=== PATIENT | male | born 1930 | race Caucasian/White ===

== ENCOUNTER 2016-07-09 10:28 | Inpatient (IN) | payer MEDICARE, OTHER ==
[2016-07-09] MEDS ORDERED: SODIUM CHLORIDE 0.9% 1,000 ML IV STA (10:42)
[2016-07-09] MEDS ORDERED: IPRATROPIUM-ALBUTEROL 3 ML NEB INHALATION STA (10:42)
--- NOTE | 2016-07-09 10:52 | ED ---
General Adult HPI - General Chief complaint: Shortness of Breath Stated complaint: GEN Time Seen by Provider: 07/09/16 10:30 Source: patient, EMS, RN notes reviewed, old records reviewed Mode of arrival: EMS - History of Present Illness Initial comments: This is an 85-year-old male ER for evaluation. Patient coming upper extremity carefully for evaluation of cough and shortness of breath, decreased activity level. Patient self really has no complaints, he was hypoxic on room air when he came to the emergency room today. Patient did deny any chest pain, no recent fevers, he does have a cough denies any significant sick contacts. Patient denies abdominal pain or chest pain. No nausea vomiting or diarrhea - Related Data Home Medications Medication Instructions Recorded Confirmed Digoxin [Lanoxin] 125 mcg PO QAM 06/11/15 07/09/16 Isosorbide Mononitrate [Isosorbide 30 mg PO DAILY 06/11/15 07/09/16 Mononitrate ER] Levothyroxine Sodium [Synthroid] 100 mcg PO DAILY 06/11/15 07/09/16 Sotalol [Betapace] 40 mg PO BID 06/11/15 07/09/16 metFORMIN HCL [Glucophage] 500 mg PO BID 06/11/15 07/09/16 Aspirin 325 mg PO HS 07/23/15 07/09/16 Cholecalciferol [Vitamin D3] 1,000 unit PO HS 07/23/15 07/09/16 Simvastatin [Zocor] 20 mg PO HS 07/23/15 07/09/16 Furosemide [Lasix] 20 mg PO DAILY 07/09/16 07/09/16 Warfarin Sodium [Coumadin] 3 mg PO THSA 07/09/16 07/09/16 Warfarin Sodium [Coumadin] 4 mg PO SUMOTUWEFR 07/09/16 07/09/16 Allergies Allergy/AdvReac Type Severity Reaction Status Date / Time Penicillins Allergy Rash/Hives Verified 07/09/16 11:30 clindamycin AdvReac Nausea & Verified 07/09/16 11:30 Vomiting Sulfa (Sulfonamide AdvReac Nausea & Verified 07/09/16 11:30 Antibiotics) Vomiting Review of Systems ROS Statement: Those systems with pertinent positive or pertinent negative responses have been documented in the HPI. ROS Other: All systems not noted in ROS Statement are negative. 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 cerebral palsy. AUGUSTINE,anemia, mild short term memory problems, past arrythmia, lt hand ( dominate hand) shakes, dizzy spells orthostatic hypotension(was here 06-11-15 for this problem(lasix was decreased from 40mg to 20mg at that time. History of Any Multi-Drug Resistant Organisms: None Reported Past Surgical History: Cholecystectomy, Coronary Bypass/CABG, Heart Catheterization, Pacemaker Additional Past Surgical History / Comment(s): lt side facial sx to relive tension by eye Past Anesthesia/Blood Transfusion Reactions: No Reported Reaction Type of Cardiac Device: Permanent Pacemaker Device Placement Date:: unk Past Psychological History: No Psychological Hx Reported Additional Psychological History / Comment(s): pt currently living with his niece,no outside services, uses a cane when up-has orhtostatic hypotension-fell 06-11-15 no injury). Smoking Status: Former smoker Past Alcohol Use History: None Reported Additional Past Alcohol Use History / Comment(s): quit 1996 Past Drug Use History: None Reported - Past Family History Father Family Medical History: Myocardial Infarction ([place]) Mother Family Medical History: Myocardial Infarction ([place]) General Exam General appearance: alert, in no apparent distress Head exam: Present: atraumatic, normocephalic, normal inspection Eye exam: Present: normal appearance, PERRL, EOMI. Absent: scleral icterus, conjunctival injection, periorbital swelling ENT exam: Present: mucous membranes dry Neck exam: Present: normal inspection. Absent: tenderness, meningismus, lymphadenopathy Respiratory exam: Present: normal lung sounds bilaterally, wheezes. Absent: respiratory distress, rales, rhonchi, stridor Cardiovascular Exam: Present: regular rate, normal rhythm, normal heart sounds. Absent: systolic murmur, diastolic murmur, rubs, gallop, clicks GI/Abdominal exam: Present: soft, normal bowel sounds. Absent: distended, tenderness, guarding, rebound, rigid Extremities exam: Present: normal inspection, full ROM, normal capillary refill. Absent: tenderness, pedal edema, joint swelling, calf tenderness Back exam: Present: normal inspection Neurological exam: Present: alert, oriented X3, CN II-XII intact Psychiatric exam: Present: normal affect, normal mood Skin exam: Present: warm, dry, intact, normal color. Absent: rash Course Vital Signs 07/09/16 07/09/16 07/09/16 10:29 11:05 11:20 Temperature 96.8 F L Pulse Rate 76 66 62 Respiratory 20 Rate Blood Pressure 111/58 O2 Sat by Pulse 93 L Oximetry - Reevaluation(s) Reevaluation #1: 07/09/16 12:57 Patient does have improvement patient with IV hydration and breathing treatment EKG Findings - EKG Comments: EKG Findings:: EKG shows paced rhythm rate of 63, QRS 176, QTC 495 Medical Decision Making - Medical Decision Making A female year for evaluation of the altered mental status cough and congestion, patient does of COPD exacerbation no pneumonia seen, patient is of elevated troponin which was trended out, denied chest pain and no EKG changes at this time. Patient given a breathing treatment and IV resuscitation and feeling better - Lab Data Result diagrams: 07/09/16 10:40 07/09/16 10:40 Lab Results 07/09/16 07/09/16 07/09/16 Range/Units 10:40 10:40 10:40 WBC 7.3 (3.8-10.6) k/uL RBC 2.91 L (4.30-5.90) m/uL Hgb 11.2 L (13.0-17.5) gm/dL Hct 35.0 L (39.0-53.0) % MCV 120.0 H (80.0-100.0) fL MCH 38.3 H (25.0-35.0) pg MCHC 31.9 (31.0-37.0) g/dL RDW 15.6 H (11.5-15.5) % Plt Count 155 (150-450) k/uL Neutrophils % 67 % Lymphocytes % 20 % Monocytes % 6 % Eosinophils % 3 % Basophils % 1 % Neutrophils # 4.9 (1.3-7.7) k/uL Lymphocytes # 1.4 (1.0-4.8) k/uL Monocytes # 0.4 (0-1.0) k/uL Eosinophils # 0.2 (0-0.7) k/uL Basophils # 0.1 (0-0.2) k/uL Manual Slide Review Performed Poikilocytosis (manual Present Macrocytosis Marked PT (9.0-12.0) sec INR (<1.1) APTT (22.0-30.0) sec Sodium 140 (137-145) mmol/L Potassium 4.8 (3.5-5.1) mmol/L Chloride 104 (98-107) mmol/L Carbon Dioxide 22 (22-30) mmol/L Anion Gap 14 mmol/L BUN 24 H (9-20) mg/dL Creatinine 1.15 (0.66-1.25) mg/dL Est GFR (MDRD) Af Amer >60 (>60 ml/min/1.73 sqM) Est GFR (MDRD) Non-Af >60 (>60 ml/min/1.73 sqM) Glucose 183 H (74-99) mg/dL Plasma Lactic Acid Bandar (0.7-2.0) mmol/L Calcium 8.5 (8.4-10.2) mg/dL Phosphorus 4.2 (2.5-4.5) mg/dL Magnesium 1.7 (1.6-2.3) mg/dL Total Bilirubin 2.2 H (0.2-1.3) mg/dL AST 51 (17-59) U/L ALT 41 (21-72) U/L Alkaline Phosphatase 102 (38-126) U/L Total Creatine Kinase 40 L (55-170) U/L CK-MB (CK-2) 1.7 (0.0-2.4) ng/mL CK-MB (CK-2) Rel Index 4.3 Troponin I 0.095 H* (0.000-0.034) ng/mL Total Protein 8.0 (6.3-8.2) g/dL Albumin 3.1 L (3.5-5.0) g/dL Digoxin 1.7 ng/mL Influenza Type A RNA (Not Detectd) Influenza Type B (PCR) (Not Detectd) 07/09/16 07/09/16 07/09/16 Range/Units 10:40 10:40 10:40 WBC (3.8-10.6) k/uL RBC (4.30-5.90) m/uL Hgb (13.0-17.5) gm/dL Hct (39.0-53.0) % MCV (80.0-100.0) fL MCH (25.0-35.0) pg MCHC (31.0-37.0) g/dL RDW (11.5-15.5) % Plt Count (150-450) k/uL Neutrophils % % Lymphocytes % % Monocytes % % Eosinophils % % Basophils % % Neutrophils # (1.3-7.7) k/uL Lymphocytes # (1.0-4.8) k/uL Monocytes # (0-1.0) k/uL Eosinophils # (0-0.7) k/uL Basophils # (0-0.2) k/uL Manual Slide Review Poikilocytosis (manual Macrocytosis PT 28.7 H (9.0-12.0) sec INR 3.0 (<1.1) APTT 35.1 H (22.0-30.0) sec Sodium (137-145) mmol/L Potassium (3.5-5.1) mmol/L Chloride (98-107) mmol/L Carbon Dioxide (22-30) mmol/L Anion Gap mmol/L BUN (9-20) mg/dL Creatinine (0.66-1.25) mg/dL Est GFR (MDRD) Af Amer (>60 ml/min/1.73 sqM) Est GFR (MDRD) Non-Af (>60 ml/min/1.73 sqM) Glucose (74-99) mg/dL Plasma Lactic Acid Bandar 5.3 H* (0.7-2.0) mmol/L Calcium (8.4-10.2) mg/dL Phosphorus (2.5-4.5) mg/dL Magnesium (1.6-2.3) mg/dL Total Bilirubin (0.2-1.3) mg/dL AST (17-59) U/L ALT (21-72) U/L Alkaline Phosphatase (38-126) U/L Total Creatine Kinase (55-170) U/L CK-MB (CK-2) (0.0-2.4) ng/mL CK-MB (CK-2) Rel Index Troponin I (0.000-0.034) ng/mL Total Protein (6.3-8.2) g/dL Albumin (3.5-5.0) g/dL Digoxin ng/mL Influenza Type A RNA Not Detected (Not Detectd) Influenza Type B (PCR) Not Detected (Not Detectd) - Radiology Data Radiology results: report reviewed (Chest x-ray has chronic changes), image reviewed Disposition Clinical Impression: Elevated troponin I level, Acute kidney failure, unspecified, Congestive heart failure, Acute exacerbation of chronic obstructive airways disease Disposition: ADMITTED IP TO THIS HOSP Condition: Fair Referrals: Christiano Warren DO [Primary Care Provider] - 1-2 days
[2016-07-09 11:09] LABS: Basophils # (A) 0.1 k/uL (0-0.2); Basophils % (A) 1 %; Eosinophils # (A) 0.2 k/uL (0-0.7); Eosinophils % (A) 3 %; HDW 2.85; HGB 11.2 gm/dL (13.0-17.5); Luc # (Auto) 0.26; Luc % (Auto) 4; Lymphocytes # (A) 1.4 k/uL (1.0-4.8); Lymphocytes % (A) 20 %; MCH 38.3 pg (25.0-35.0); MCHC 31.9 g/dL (31.0-37.0); Macrocytosis Marked; Monocytes # (A) 0.4 k/uL (0-1.0); Monocytes % (A) 6 %; Neutrophils # (A) 4.9 k/uL (1.3-7.7); Neutrophils % (A) 67 %; RBC 2.91 m/uL (4.30-5.90); RDW 15.6 % (11.5-15.5); WBC 7.3 k/uL (3.8-10.6)
[2016-07-09 11:15] LABS: ALT 41 U/L (21-72); AST 51 U/L (17-59); Alkaline Phosphatase 102 U/L (38-126); Anion Gap 14 mmol/L; Blood Urea Nitrogen 24 mg/dL (9-20); Calcium 8.5 mg/dL (8.4-10.2); Carbon Dioxide 22 mmol/L (22-30); Chloride 104 mmol/L (98-107); Digoxin 1.7 ng/mL; Glucose 183 mg/dL (74-99); Magnesium 1.7 mg/dL (1.6-2.3); Non-African American GFR(MDRD) >60 (>60 ml/min/1.73 sqM); Phosphorous 4.2 mg/dL (2.5-4.5); Potassium 4.8 mmol/L (3.5-5.1); Sodium 140 mmol/L (137-145); Total Bilirubin 2.2 mg/dL (0.2-1.3)
--- NOTE | 2016-07-09 11:19 | XR ---
EXAMINATION TYPE: XR chest 2V DATE OF EXAM: 07/09/2016 10:56 AM COMPARISON: 10/16/2015 HISTORY: Weakness FINDINGS: The lungs are clear and there is no pneumothorax, pleural effusion, or focal pneumonia. Postsurgical change and cardiac device noted. Diffuse interstitial pattern seen with bilateral lateral pleural th ickening and small right effusion. Hypertrophic and degenerative change of the spine. Surgical clips in the abdomen. IMPRESSION: 1. Right-sided chronic pleural thickening or tiny effusion with evidence suggestive of COPD and chron ic interstitial lung disease such as fibrosis. Findings appear slightly progressed with regard to the right lower lobe relative to the previous x-ray. Small effusion also is increased.
[2016-07-09 11:20] LABS: Partial Thromboplastin Time 35.1 sec (22.0-30.0); Prothrombin Time 28.7 sec (9.0-12.0)
[2016-07-09 11:34] LABS: Manual Review Performed
[2016-07-09 11:45] LABS: Creatine Kinase MB 1.7 ng/mL (0.0-2.4)
[2016-07-09 11:48] LABS: Troponin I 0.095 ng/mL (0.000-0.034)
[2016-07-09] MEDS ORDERED: SODIUM CHLORIDE 0.9% 500 ML IV STA (12:04)
[2016-07-09] MEDS ORDERED: SODIUM CHLORIDE 0.9% 2,000 ML IV STA (12:04)
[2016-07-09] MEDS ORDERED: ASPIRIN 81 MG CHEW PO STA (12:53)
[2016-07-09] MEDS ORDERED: NITROGLYCERIN SL TABS 0.4 MG TAB SUBLINGUAL PRN (12:53)
[2016-07-09] MEDS ORDERED: MORPHINE SULFATE 4 MG/ML SYRINGE IV PRN (12:53)
[2016-07-09] MEDS ORDERED: SODIUM CHLORIDE 0.9% 1,000 ML IV SCH (13:00)
[2016-07-09 14:05] VITALS: BMI 27.3
[2016-07-09 15:11] LABS: Appearance,Urine Cloudy (Clear); Bilirubin,Urine Negative (Negative); Glucose,Urine (UA) Negative (Negative); Ketones,Urine Negative (Negative); Leukocyte Esterase,Urine Large (Negative); Mucus,Urine Rare /hpf; Nitrite,Urine Negative (Negative); Particle Count 3067; Protein,Urine Trace (Negative); RBC,Urine 8 /hpf (0-5); Squamous Epithelial Cell,Urine <1 /hpf (0-4); UA Billing (MACRO vs. MICRO) MICRO; Urobilinogen,Urine <2.0 mg/dL (<2.0); WBC,Urine 81 /hpf (0-5)
[2016-07-09] MEDS: IPRATROPIUM-ALBUTEROL 3 ML NEB INHALATION SCH ×2 (15:52→20:43)
[2016-07-09 17:17] LABS: Glucose,Whole Blood 111 mg/dL (75-99)
[2016-07-09 17:41] LABS: Troponin I 0.193 ng/mL (0.000-0.034)
--- NOTE | 2016-07-09 20:35 | HP ---
DATE OF ADMISSION: 07/09/2016 The patient is an 85-year-old who came into the ER with complaints of shortness of breath, cough, with yellowish sputum production, the patient is on about ( ) at this point in time. The patient on clinical exam does have JVD as well as wheezing on exam. I do not appreciate any crackles. The patient does have ejection fraction of 30%. The patient does not give me a clear history of orthopnea, PND, the patient denied any fevers. The patient does not have any leukocytosis. The patient did not have any BNP available. The patient ( ) digoxin ( ) The patient is on 125 mcg of Digoxin for atrial fibrillation. The patient dig level are ( ) is being held. The patient is a poor historian. The patient is basically admitted to the hospital with acute hypoxic respiratory failure. Patient denied any chest pain, mildly elevated troponin and EKG ( ), no ST-T wave changes but the patient repeat troponins will be obtained. The patient is on Coumadin for atrial fibrillation with supratherapeutic INR with therapeutic INR of around 3. The patient does have ( ) probably related to Metformin rather than pneumonic process. ROS: All other systems were reviewed and were negative. Home medications include: 1. Digoxin. 2. Isosorbide mononitrate. 3. Levothyroxine. 4. ( ). 5. Metformin. 6. Cholecalciferol. 7. ( ). 8. Lasix 20 mg oral daily. 9. Coumadin 3 mg and Friday, 4 mg the rest of the days. ALLERGIES: ( ) CLINDAMYCIN, SULFA DRUGS. PAST MEDICAL HISTORY: Significant for coronary artery disease, congestive heart failure, chronic systolic dysfunction, ejection fraction of around 30%, diabetes mellitus, hyperlipidemia, hypertension, cholecystectomy, coronary artery bypass grafting and ( ), cardiac catheterization and pacemaker placement in the past. The patient had a permanent pacemaker. SOCIAL HISTORY: Former smoker. Denied any alcohol abuse or any drug abuse. FAMILY HISTORY: Father had myocardial infarction. Mother had myocardial infarction. PHYSICAL EXAMINATION: VITAL SIGNS: Temperature 97.6, pulse of 76, respiratory rate of 20, blood pressure is 111/58, saturating at 93% on Venti mask, both ( ), oxygen. GENERAL: The patient is alert and oriented x3, not in any acute distress. Well developed, well nourished. HEENT: Pupils are round and equally reacting to light. EOMI. No scleral icterus. No conjunctival pallor. Normocephalic, atraumatic. No pharyngeal erythema. No thyromegaly. CARDIOVASCULAR: S1 and S2 present. Patient does have S3 and ( ) l believe the patient does have S3 as well. The patient does have elevated JVD. LUNGS: ( ) bilateral. No crackles were heard. Mildly decreased air entry into bilateral legs. PULMONARY: Chest is clear to auscultation, no wheezing or crackles. ABDOMEN: Soft, nontender, nondistended, normoactive bowel sounds. No palpable organomegaly. MUSCULOSKELETAL: No joint swelling or deformity. EXTREMITIES: No cyanosis, clubbing, or pedal edema. NEUROLOGICAL: Gross neurological examination did not reveal any focal deficits. SKIN: No rashes. SOCIAL HISTORY: Former smoker, denied any alcohol abuse or any drug abuse. LABORATORY DATA: CBC and BMP are abnormal and significant for mildly elevated creatinine of 1.15, BUN of 14, lactic acid of around ( ), mildly elevated troponin of 0.15, dig level is 1.7 lactic acid elevated at 5.3. Patient received IV fluids with lactic acid coming down to around 3.5. ASSESSMENT: 1. Acute hypoxic respiratory failure. I believe patient mostly has congestive heart failure exacerbation. Patient has chronic systolic dysfunction with acute exacerbation. The patient will be started on ( ) lactic acidosis. Lactic acid will be obtained again. I believe lactic acidosis mostly related to Metformin rather than ( ) itself. My suspicion is low for sepsis at this point of time and patient's wheezing is probably related to ( ). I will obtain a BNP level, probably repeat chest x-ray tomorrow. Chest x-ray was reviewed and it has chronic interstitial changes. I did not see any significant pneumonic process but I believe from the chest x-ray patient may have congestive heart failure. 2. Lactic acidosis probably related to metformin. In spite of lactic acidosis, because of my concern of severe respiratory failure, I will go ahead and give him Lasix. Repeat lactic acid and if it continues to go up then I have to get their advice from pulmonology or cardiology. Cardiology was consulted ( ). 3. Atrial fibrillation, ( ). The patient dig levels are elevated because of which his digoxin will be held. Will continue with sotalol. Patient is therapeutic on anticoagulation. Repeat INR tomorrow. Coumadin probably can be continued. 4. Diabetes mellitus, hold Metformin. The patient will be continued on sliding scale insulin. 5. Hyperlipidemia. 6. Coronary artery disease. 7. Hypertension. For above-mentioned chronic medical problems, I will go ahead and continue his home medications. 8. Hypothyroidism. Continue with levothyroxine. MTDD
[2016-07-09 20:52] LABS: Glucose,Whole Blood 120 mg/dL (75-99)
[2016-07-09] MEDS ORDERED: ASPIRIN 325 MG TAB PO SCH (21:00)
[2016-07-09] MEDS: SOTALOL 80 MG TAB PO SCH (22:01)
[2016-07-09] MEDS: ATORVASTATIN 10 MG TAB PO SCH (22:02)
[2016-07-09] MEDS: FUROSEMIDE 10 MG/ML 4 ML VIAL IV SCH (22:02)
[2016-07-09 23:17] LABS: Creatine Kinase MB 2.5 ng/mL (0.0-2.4); Troponin I 0.214 ng/mL (0.000-0.034)
[2016-07-10] MEDS: IPRATROPIUM-ALBUTEROL 3 ML NEB INHALATION SCH ×6 (00:47→20:28)
[2016-07-10 06:28] LABS: CH 37.8; CHCM 31.3; HGB 11.7 gm/dL (13.0-17.5); Hypochromasia Slight; MCH 39.6 pg (25.0-35.0); MCHC 32.5 g/dL (31.0-37.0); MCV 121.7 fL (80.0-100.0); Macrocytosis Marked; Mean Platelet Volume 8.1; RBC 2.96 m/uL (4.30-5.90); RDW 15.4 % (11.5-15.5); WBC 8.3 k/uL (3.8-10.6)
[2016-07-10 06:35] LABS: Glucose,Whole Blood 112 mg/dL (75-99)
[2016-07-10] MEDS: LEVOTHYROXINE 100 MCG TAB PO SCH (06:54)
[2016-07-10 07:04] LABS: Anion Gap 11 mmol/L; Blood Urea Nitrogen 23 mg/dL (9-20); Calcium 8.2 mg/dL (8.4-10.2); Carbon Dioxide 24 mmol/L (22-30); Chloride 106 mmol/L (98-107); Cholesterol 118 mg/dL (<200); Glucose 97 mg/dL (74-99); HDL Cholesterol 42 mg/dL (40-60); Non-African American GFR(MDRD) >60 (>60 ml/min/1.73 sqM); Potassium 4.6 mmol/L (3.5-5.1); Sodium 141 mmol/L (137-145); Triglycerides 62 mg/dL (<150)
[2016-07-10] MEDS ORDERED: DIGOXIN 125 MCG TAB PO SCH (09:00)
[2016-07-10] MEDS ORDERED: ASPIRIN 325 MG TAB PO SCH (09:00)
[2016-07-10] MEDS: ASPIRIN 325 MG TAB PO SCH (09:02)
[2016-07-10] MEDS: FUROSEMIDE 10 MG/ML 4 ML VIAL IV SCH ×2 (09:02→21:38)
[2016-07-10] MEDS: ENOXAPARIN 40 MG/0.4 ML SYRINGE SQ SCH (09:02)
[2016-07-10] MEDS: SOTALOL 80 MG TAB PO SCH ×2 (09:03→21:38)
[2016-07-10] MEDS: ISOSORBIDE MONONITRATE ER 30 MG TAB.ER.24H PO SCH (09:04)
[2016-07-10] MEDS: predniSONE 20 MG TAB PO SCH (09:04)
--- NOTE | 2016-07-10 11:30 | P.CRDCN ---
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 Chest x-ray on admission revealed right sided chronic pleural thickening or tiny effusion with evidence suggestive of COPD and chronic interstitial lung disease such as fibrosis. EKG on admission shows ventricular paced rhythm. Laboratory data was reviewed, hemoglobin 11.7, potassium 4.6, INR 3.0. BUN 23, creatinine 1.0, magnesium level I.7. Troponins 0.09, 0.19, 0.21. BNP level 2470. He was initiated on IV Lasix in the emergency room, diuresed well through the night, weight is down today. States his breathing is somewhat improved today, continues to have a nonproductive cough. Blood pressure 100/58 , heart rate in the 80s. 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 cerebral palsy. TAKOTNA,anemia, mild short term memory problems, past arrythmia, lt hand ( dominate hand) shakes, dizzy spells orthostatic hypotension(was here 1-3-16 for this problem(lasix was decreased from 40mg to 20mg at that time. History of Any Multi-Drug Resistant Organisms: None Reported Past Surgical History: Cholecystectomy, Coronary Bypass/CABG, Heart Catheterization, Pacemaker Additional Past Surgical History / Comment(s): lt side facial sx to relive tension by eye Past Anesthesia/Blood Transfusion Reactions: No Reported Reaction Type of Cardiac Device: Permanent Pacemaker Device Placement Date:: unk Past Psychological History: No Psychological Hx Reported Additional Psychological History / Comment(s): pt currently living with his niece,no outside services, uses a cane when up-has orhtostatic hypotension-fell 06-11-15 no injury). Smoking Status: Former smoker Past Alcohol Use History: None Reported Additional Past Alcohol Use History / Comment(s): quit 1996 Past Drug Use History: None Reported - Past Family History Father Family Medical History: Myocardial Infarction (AL) Mother Family Medical History: Myocardial Infarction (AL) Medications and Allergies Home Medications Medication Instructions Recorded Confirmed Type Digoxin [Lanoxin] 125 mcg PO QAM 06/11/15 07/09/16 History Isosorbide Mononitrate [Isosorbide 30 mg PO DAILY 06/11/15 07/09/16 History Mononitrate ER] Levothyroxine Sodium [Synthroid] 100 mcg PO DAILY 06/11/15 07/09/16 History Sotalol [Betapace] 40 mg PO BID 06/11/15 07/09/16 History metFORMIN HCL [Glucophage] 500 mg PO BID 06/11/15 07/09/16 History Aspirin 325 mg PO HS 07/23/15 07/09/16 History Cholecalciferol [Vitamin D3] 1,000 unit PO HS 07/23/15 07/09/16 History Simvastatin [Zocor] 20 mg PO HS 07/23/15 07/09/16 History Furosemide [Lasix] 20 mg PO DAILY 07/09/16 07/09/16 History Warfarin Sodium [Coumadin] 3 mg PO THSA 07/09/16 07/09/16 History Warfarin Sodium [Coumadin] 4 mg PO [id number] 07/09/16 07/09/16 History Allergies Allergy/AdvReac Type Severity Reaction Status Date / Time Penicillins Allergy Rash/Hives Verified 07/09/16 11:30 clindamycin AdvReac Nausea & Verified 07/09/16 11:30 Vomiting Sulfa (Sulfonamide AdvReac Nausea & Verified 07/09/16 11:30 Antibiotics) Vomiting Physical Exam Vitals: Vital Signs Temp Pulse Pulse Resp BP BP Pulse Ox 07/10/16 09:39 92 07/10/16 09:31 88 07/10/16 04:00 96.1 F L 81 18 100/58 90 L 07/10/16 03:23 84 07/10/16 03:12 84 07/10/16 00:50 80 07/10/16 00:40 80 07/09/16 23:10 96.1 F L 72 18 132/67 95 07/09/16 20:55 97.1 F L 75 18 130/65 97 07/09/16 20:46 80 07/09/16 20:36 80 07/09/16 16:03 80 07/09/16 15:56 88 91 L 07/09/16 14:22 95 19 07/09/16 13:19 97 F L 95 19 105/53 95 07/09/16 12:56 56 L 18 117/59 96 Intake and Output 07/09/16 07/10/16 07/10/16 22:59 06:59 14:59 Intake Total 120 Output Total 300 700 Balance -180 -700 Intake: Oral 120 Output: Urine 300 700 Other: Voiding Method Urinal Urinal # Voids 1 # Bowel Movements 0 1 Weight 73.8 kg PHYSICAL EXAMINATION: HEENT: [Head is atraumatic, normocephalic. Pupils equal, round. Neck is supple. There is no elevated jugular venous pressure.] HEART EXAMINATION: [Heart S1, S2 normal. No murmur or gallop heard.] CHEST EXAMINATION:[ Lungs are clear to auscultation and precussion. No chest wall tenderness is noted on palpation or with deep breathing.] ABDOMEN: [ Soft, nontender. Bowel sounds are heard. No organomegaly noted]. EXTREMITIES:[ 2+ peripheral pulses with trace evidence of peripheral edema and no calf tenderness noted]. NEUROLOGIC [patient is awake, alert and oriented -3.] . Results 07/10/16 06:17 07/10/16 06:17 Cardiac Enzymes 07/09/16 07/09/16 Range/Units 16:34 22:08 CK-MB (CK-2) 2.0 2.5 H* (0.0-2.4) ng/mL Troponin I 0.193 H* 0.214 H* (0.000-0.034) ng/mL Lipids 07/10/16 Range/Units 06:17 Triglycerides 62 (<150) mg/dL Cholesterol 118 (<200) mg/dL HDL Cholesterol 42 (40-60) mg/dL CBC 07/10/16 Range/Units 06:17 WBC 8.3 (3.8-10.6) k/uL RBC 2.96 L (4.30-5.90) m/uL Hgb 11.7 L (13.0-17.5) gm/dL Hct 36.0 L (39.0-53.0) % Plt Count 123 L (150-450) k/uL Comprehensive Metabolic Panel 07/10/16 Range/Units 06:17 Sodium 141 (137-145) mmol/L Potassium 4.6 (3.5-5.1) mmol/L Chloride 106 (98-107) mmol/L Carbon Dioxide 24 (22-30) mmol/L BUN 23 H (9-20) mg/dL Creatinine 1.07 (0.66-1.25) mg/dL Glucose 97 (74-99) mg/dL Calcium 8.2 L (8.4-10.2) mg/dL Current Medications Generic Name Dose Route Start Last Admin Trade Name Freq PRN Reason Stop Dose Admin Albuterol/Ipratropium 3 ml 07/09/16 16:00 07/10/16 09:31 Duoneb 0.5 Mg-3 Mg/3 Ml Soln INHALATION 3 ml RT-Q4H PAPO Administration Aspirin 325 mg 07/10/16 09:00 07/10/16 09:02 Aspirin PO 325 mg DAILY PAP[facility] Administration Atorvastatin Calcium 10 mg 07/09/16 21:00 07/09/16 22:02 Lipitor PO 10 mg HS PAPO Administration Enoxaparin Sodium 40 mg 07/10/16 09:00 07/10/16 09:02 Lovenox SQ 40 mg DAILY [facility] Administration Furosemide 40 mg 07/09/16 21:00 07/10/16 09:02 Lasix IV 40 mg Q12HR PAPO Administration Isosorbide Mononitrate 30 mg 07/10/16 09:00 07/10/16 09:04 Imdur PO 30 mg DAILY [facility] Administration Levothyroxine Sodium 100 mcg 07/10/16 06:30 07/10/16 06:54 Synthroid PO 100 mcg DAILY@0630 [facility] Administration Morphine Sulfate 4 mg 07/09/16 12:53 Morphine Sulfate (Inj) IV Q4HR PRN Chest Pain Nitroglycerin 0.4 mg 07/09/16 12:53 Nitrostat SUBLINGUAL Q5M PRN Chest Pain Prednisone 40 mg 07/10/16 09:00 07/10/16 09:04 PO 40 mg DAILY [facility] Administration Sotalol HCl 40 mg 07/09/16 21:00 07/10/16 09:03 Betapace PO 40 mg BID PAPO Administration Intake and Output 07/09/16 07/10/16 07/10/16 22:59 06:59 14:59 Intake Total 120 Output Total 300 700 Balance -180 -700 Intake: Oral 120 Output: Urine 300 700 Other: Voiding Method Urinal Urinal # Voids 1 # Bowel Movements 0 1 Weight 73.8 kg 07/10/16 06:17 07/10/16 06:17 EKG Interpretations (text) EKG shows a paced rhythm with underlying atrial fibrillation. Assessment and Plan Plan: Assessment and Plan 1 systolic congestive heart failure acute on chronic #2 lactic acidosis #3 chronic persistent atrial fibrillation on Coumadin #4 diabetes # 5 hyperlipidemia #6 known history of coronary artery disease and prior bypass surgery #7 hypertension #8 hypothyroidism #9 Ischemic cardio myopathy with documented ejection fraction of 30-35% by echo performed a year ago. Plan We will repeat an echocardiogram with Doppler study. Continue current dose of IV Lasix. Reduce aspirin 81 mg daily. Further recommendations to follow. DNP note has been reviewed, I agree with a documented findings and plan of care. Patient was seen and examined. <Kodak Jovel - Last Filed: 07/10/16 14:10> Physical Exam Vitals: Vital Signs Temp Pulse Pulse Resp BP Pulse Ox 07/10/16 13:37 96 07/10/16 13:20 94 07/10/16 09:39 92 07/10/16 09:31 88 07/10/16 08:45 97.0 F L 69 18 122/60 96 07/10/16 04:00 96.1 F L 81 18 100/58 90 L 07/10/16 03:23 84 07/10/16 03:12 84 07/10/16 00:50 80 07/10/16 00:40 80 07/09/16 23:10 96.1 F L 72 18 132/67 95 07/09/16 20:55 97.1 F L 75 18 130/65 97 07/09/16 20:46 80 07/09/16 20:36 80 07/09/16 16:03 80 07/09/16 15:56 88 91 L 07/09/16 14:22 95 19 Intake and Output 07/09/16 07/10/16 07/10/16 22:59 06:59 14:59 Intake Total 120 Output Total 300 700 Balance -180 -700 Intake: Oral 120 Output: Urine 300 700 Other: Voiding Method Urinal Urinal # Voids 1 # Bowel Movements 0 1 Weight 73.8 kg Results 07/10/16 06:17 07/10/16 06:17 Cardiac Enzymes 07/09/16 07/09/16 Range/Units 16:34 22:08 CK-MB (CK-2) 2.0 2.5 H* (0.0-2.4) ng/mL Troponin I 0.193 H* 0.214 H* (0.000-0.034) ng/mL Lipids 07/10/16 Range/Units 06:17 Triglycerides 62 (<150) mg/dL Cholesterol 118 (<200) mg/dL HDL Cholesterol 42 (40-60) mg/dL CBC 07/10/16 Range/Units 06:17 WBC 8.3 (3.8-10.6) k/uL RBC 2.96 L (4.30-5.90) m/uL Hgb 11.7 L (13.0-17.5) gm/dL Hct 36.0 L (39.0-53.0) % Plt Count 123 L (150-450) k/uL Comprehensive Metabolic Panel 07/10/16 Range/Units 06:17 Sodium 141 (137-145) mmol/L Potassium 4.6 (3.5-5.1) mmol/L Chloride 106 (98-107) mmol/L Carbon Dioxide 24 (22-30) mmol/L BUN 23 H (9-20) mg/dL Creatinine 1.07 (0.66-1.25) mg/dL Glucose 97 (74-99) mg/dL Calcium 8.2 L (8.4-10.2) mg/dL Current Medications Generic Name Dose Route Start Last Admin Trade Name Freq PRN Reason Stop Dose Admin Albuterol/Ipratropium 3 ml 07/09/16 16:00 07/10/16 13:19 Duoneb 0.5 Mg-3 Mg/3 Ml Soln INHALATION 3 ml RT-Q4H PAPO Administration Aspirin 325 mg 07/10/16 09:00 07/10/16 09:02 Aspirin PO 325 mg DAILY [facility] Administration Atorvastatin Calcium 10 mg 07/09/16 21:00 07/09/16 22:02 Lipitor PO 10 mg HS PAPO Administration Enoxaparin Sodium 40 mg 07/10/16 09:00 07/10/16 09:02 Lovenox SQ 40 mg DAILY [facility] Administration Furosemide 40 mg 07/09/16 21:00 07/10/16 09:02 Lasix IV 40 mg Q12HR P[facility]O Administration Isosorbide Mononitrate 30 mg 07/10/16 09:00 07/10/16 09:04 Imdur PO 30 mg DAILY [facility] Administration Levothyroxine Sodium 100 mcg 07/10/16 06:30 07/10/16 06:54 Synthroid PO 100 mcg DAILY@0630 [facility] Administration Morphine Sulfate 4 mg 07/09/16 12:53 Morphine Sulfate (Inj) IV Q4HR PRN Chest Pain Nitroglycerin 0.4 mg 07/09/16 12:53 Nitrostat SUBLINGUAL Q5M PRN Chest Pain Prednisone 40 mg 07/10/16 09:00 07/10/16 09:04 PO 40 mg DAILY [facility] Administration Sotalol HCl 40 mg 07/09/16 21:00 07/10/16 09:03 Betapace PO 40 mg BID [facility] Administration Intake and Output 07/09/16 07/10/16 07/10/16 22:59 06:59 14:59 Intake Total 120 Output Total 300 700 Balance -180 -700 Intake: Oral 120 Output: Urine 300 700 Other: Voiding Method Urinal Urinal # Voids 1 # Bowel Movements 0 1 Weight 73.8 kg 07/10/16 06:17 07/10/16 06:17
[2016-07-10 12:10] LABS: Glucose,Whole Blood 167 mg/dL (75-99)
[2016-07-10 17:17] LABS: Glucose,Whole Blood 248 mg/dL (75-99)
[2016-07-10] MEDS ORDERED: WARFARIN 2 MG TAB PO SCH (18:00)
--- NOTE | 2016-07-10 20:35 | PN ---
[id number] admitted with CHF exacerbation. Patient's ejection fraction was 30% to 35%. Patient has significant clinical improvement, including improvement in kidney function after Lasix. Patient's lactic acidosis improved. Patient will be resumed on his Coumadin. Repeat INR tomorrow. REVIEW OF SYSTEMS: CARDIOVASCULAR: No chest pain, no orthopnea, no PND, no palpitations. PULMONARY: Denied any shortness of breath. No cough or hemoptysis. GASTROINTESTINAL: No diarrhea, nausea or vomiting. No abdominal pain. Normoactive bowel sounds. NEUROLOGIC: No headaches, no weakness, no numbness. Medications were reviewed. PHYSICAL EXAMINATION: VITAL SIGNS: Temperature 96.6, pulse of 70, respiratory rate of 18. Blood pressure is 123/67. Saturating at 98% on 2 L of oxygen by nasal cannula. GENERAL: The patient is alert and oriented x3, not in any acute distress. Well developed, well nourished. HEENT: Pupils are round and equally reacting to light. EOMI. No scleral icterus. No conjunctival pallor. Normocephalic, atraumatic. No pharyngeal erythema. No thyromegaly. CARDIOVASCULAR: S1, S2 present. Pedal edema improved. JVD improved. Patient still has S3. PULMONARY: Chest is clear to auscultation, no wheezing or crackles. ABDOMEN: Soft, nontender, nondistended, normoactive bowel sounds. No palpable organomegaly. MUSCULOSKELETAL: No joint swelling or deformity. EXTREMITIES: No cyanosis, clubbing, or pedal edema. NEUROLOGICAL: Gross neurological examination did not reveal any focal deficits. SKIN: No rashes. LABORATORY DATA: Kidney function improved. Patient has elevated troponin of 0.214. Cardiology evaluated the patient already. ASSESSMENT AND PLAN: 1. Acute hypoxic respiratory failure secondary to congestive heart failure exacerbation, chronic systolic dysfunction, with acute exacerbation. Continue with IV Lasix and repeat I&O. Continue morning her electrolytes and kidney function. 2. Lactic acidosis due to metformin, which improved. 3. Atrial fibrillation. 4. Possibility of component of chronic obstructive pulmonary disease exacerbation. Patient is on systemic steroids, inhalational treatments. 5. Atrial fibrillation, rate controlled at this point of time off digoxin. Patient was therapeutic on Coumadin yesterday. I will repeat INR. Resume him back on his home Coumadin dose. 6. Hyperlipidemia. 7. Coronary artery disease. 8. Hypertension. 9. Hypothyroidism. Patient has a pacemaker, but patient is an appropriate candidate for AICD.
[2016-07-10 20:39] LABS: Glucose,Whole Blood 195 mg/dL (75-99)
[2016-07-10] MEDS: ATORVASTATIN 10 MG TAB PO SCH (21:38)
[2016-07-11] MEDS: IPRATROPIUM-ALBUTEROL 3 ML NEB INHALATION SCH ×6 (00:34→21:10)
[2016-07-11 06:00] LABS: Glucose,Whole Blood 164 mg/dL (75-99)
[2016-07-11 06:35] LABS: INR 3.5 (<1.1); Prothrombin Time 34.6 sec (9.0-12.0)
[2016-07-11 06:48] LABS: Anion Gap 9 mmol/L; Blood Urea Nitrogen 26 mg/dL (9-20); Calcium 8.4 mg/dL (8.4-10.2); Carbon Dioxide 28 mmol/L (22-30); Chloride 102 mmol/L (98-107); Glucose 150 mg/dL (74-99); Non-African American GFR(MDRD) >60 (>60 ml/min/1.73 sqM); Potassium 4.5 mmol/L (3.5-5.1); Sodium 139 mmol/L (137-145)
[2016-07-11] MEDS: INSULIN LISPRO (humaLOG) 300 UNIT/3 ML VIAL SQ SCH ×4 (06:50→21:47)
[2016-07-11] MEDS: LEVOTHYROXINE 100 MCG TAB PO SCH (06:50)
[2016-07-11] MEDS: ASPIRIN 325 MG TAB PO SCH (08:32)
[2016-07-11] MEDS: FUROSEMIDE 10 MG/ML 4 ML VIAL IV SCH ×2 (08:32→21:17)
[2016-07-11] MEDS: predniSONE 20 MG TAB PO SCH (08:33)
[2016-07-11] MEDS: SOTALOL 80 MG TAB PO SCH ×2 (08:33→21:18)
[2016-07-11] MEDS: ENOXAPARIN 40 MG/0.4 ML SYRINGE SQ SCH (08:34)
[2016-07-11] MEDS: ISOSORBIDE MONONITRATE ER 30 MG TAB.ER.24H PO SCH (08:34)
[2016-07-11 11:56] LABS: Glucose,Whole Blood 189 mg/dL (75-99)
--- NOTE | 2016-07-11 15:51 | P.DS ---
Providers Date of admission: 07/09/16 12:55 Expected date of discharge: 07/11/16 Attending physician: Julia Ricks Consults: 07/09/16 16:02 Consult Physician Routine Consulting Provider: Kodak Jovel Consult Reason/Comments: CHF exacerbation Do you want consulting provider notified?: Yes Primary care physician: [facility] Course: Final diagnoses: 1. Acute hypoxic respiratory failure secondary to acute on chronic CHF exacerbation, systolic dysfunction, EF 30-35% 2. Lactic acidosis secondary to metformin, which has been discontinued and changed to Januvia 3. Chronic persistent Atrial fibrillation, controlled ventricular rate 4. Coumadin monitoring 5. Acute COPD exacerbation in a patient with history of nicotine abuse 6. Hyperlipidemia 7. CAD, history of CABG, stenting, ischemic cardiomyopathy with EF of 30-35%, permanent pacemaker 8. Hypertension 9. Hypothyroidism 10. Pulmonary hypertension 11. Hyperlipidemia Hospital course: This is a 85-year-old gentleman admitted with acute CHF exacerbation, COPD, lactic acidosis and multiple other medical issues. Poor historian. EKG paced with underlying atrial fibrillation, troponin 0.09, 0.019 , 0.21, BNP 2470. Chest x-ray reported right-sided chronic pleural thickening suggestive of COPD, chronic interstitial lung disease without focal pneumonia. Dig level I.7 and digoxin discontinued. Lactic acid 5.3. In the ER ,Received IV fluids with improvement in lactic acid, down to 3.5. Diuresed well on Lasix IVP with continued improvement in renal function and lactic acidosis. Recent lactic acid 1.4. Significant clinical improvement. Patient has been cleared for discharge by cardiology. Patient is being discharged home with niece who is patient's home care scheduler, in a stable condition with guarded prognosis. Patient Condition at Discharge: Stable Plan - Discharge Summary New Discharge Prescriptions: Furosemide [Lasix] 40 mg PO DAILY #30 tablet Ipratropium-Albuterol Nebulize [Duoneb 0.5 mg-3 mg/3 ml Soln] 3 ml INHALATION QID #120 ampul.neb Lisinopril [Zestril] 2.5 mg PO DAILY #30 tablet predniSONE 10 mg PO DIRECTED #30 tab sitaGLIPtin PHOSPHATE [Januvia] 50 mg PO DAILY #30 tab Discharge Medication List Isosorbide Mononitrate [Isosorbide Mononitrate ER] 30 mg PO DAILY 06/11/15 [ History] Levothyroxine Sodium [Synthroid] 100 mcg PO DAILY 06/11/15 [History] Sotalol [Betapace] 40 mg PO BID 06/11/15 [History] Aspirin 325 mg PO HS 07/23/15 [History] Cholecalciferol [Vitamin D3] 1,000 unit PO HS 07/23/15 [History] Simvastatin [Zocor] 20 mg PO HS 07/23/15 [History] Furosemide [Lasix] 40 mg PO DAILY #30 tablet 07/11/16 [Rx] Ipratropium-Albuterol Nebulize [Duoneb 0.5 mg-3 mg/3 ml Soln] 3 ml INHALATION QID #120 ampul.neb 07/11/16 [Rx] Lisinopril [Zestril] 2.5 mg PO DAILY #30 tablet 07/11/16 [Rx] Warfarin Sodium [Coumadin] 3 mg PO DAILY #0 07/11/16 [Rx] predniSONE 10 mg PO DIRECTED #30 tab 07/11/16 [Rx] sitaGLIPtin PHOSPHATE [Januvia] 50 mg PO DAILY #30 tab 07/11/16 [Rx] Follow up Appointment(s)/Referral(s): [facility], [NON-STAFF] - Christiano Warren DO [Primary Care Provider] - 07/15/16 11:00 am (with DR CLEANING. BRING DISCHARGE PAPER WORK AND NEW MEDICATIONS) Ambulatory/Diagnostic Orders: Prothrombin Time INR [LAB.AMB] Time Frame: 07/15/16, Location: Determined By Patient Activity/Diet/Wound Care/Special Instructions: Confirm cardiology follow-up apt. hold Coumadin tonight, resume tomorrow home dose. [facility] telehealth Diet: CHF diet, consistent carb Accu-Cheks before meals and at bedtime Activity: Limited until follow up 2l [place] [employer] technical program manager to arrange for nebulizer Discharge Disposition: HOME WITH HOME HEALTH SERVICES
[2016-07-11] MEDS ORDERED: POTASSIUM CHLORIDE ER 20 MEQ TAB.ER PO STA (17:28)
[2016-07-11 17:30] LABS: Glucose,Whole Blood 163 mg/dL (75-99)
--- NOTE | 2016-07-11 17:35 | P.PN ---
Subjective Date of service 07/11/2016. Progress note being dictated for Dr. Ricks. Interval history: This is a 85-year-old gentleman admitted with acute hypoxic respiratory failure secondary to acute on chronic CHF exacerbation, acute COPD and multiple other medical issues. Initially had planned for discharge but significantly weak, niece is concerned that patient unable to climb stairs at home. Significant clinical improvement with the exception of mild confusion last night without agitation, had not been sleeping well. Denies chest pain, palpitations or increasing shortness of breath. INR 3.5. Objective - Vital Signs Vital signs: Vital Signs Temp 96.6 F L 07/11/16 12:00 Pulse 88 07/11/16 16:40 Resp 20 07/11/16 15:59 BP 139/76 07/11/16 12:00 Pulse Ox 88 L 07/11/16 15:59 Intake & Output 07/10/16 07/11/16 07/11/16 18:59 06:59 18:59 Intake Total 40 486 Output Total 125 700 600 Balance -85 -700 -114 Weight 73 kg Intake: Oral 40 486 Output: Urine 125 700 600 Other: Voiding Method Urinal # Voids 1 1 # Bowel Movements 1 - Exam PHYSICAL EXAM: VITAL SIGNS: As above GENERAL: [Sitting up in bed, no acute distress] HEENT: [Pupils equal conjunctiva normal.] NECK: [Supple, no JVD] RESPIRATORY EFFORT:[Normal] LUNGS: [Diminished, no wheezing, no crackles] CARDIOVASCULAR[irregular, controlled ventricular rate] GI: [Abdomen soft, nontender, positive bowel sounds.] PSYCH: [Alert and oriented -2, mood and affect normal.] NEURO: No focal deficits - Labs CBC & Chem 7: 07/10/16 06:17 07/11/16 05:51 Labs: Abnormal Lab Results - Last 24 Hours (Table) 07/10/16 07/10/16 07/11/16 Range/Units 17:12 20:37 05:51 PT (9.0-12.0) sec BUN 26 H (9-20) mg/dL Glucose 150 H (74-99) mg/dL POC Glucose (mg/dL) 248 H 195 H (75-99) mg/dL 07/11/16 07/11/16 07/11/16 Range/Units 05:51 05:58 11:52 PT 34.6 H (9.0-12.0) sec BUN (9-20) mg/dL Glucose (74-99) mg/dL POC Glucose (mg/dL) 164 H 189 H (75-99) mg/dL Assessment and Plan Plan: 1. Acute hypoxic respiratory failure secondary to acute on chronic CHF exacerbation, systolic dysfunction, EF 30-35% 2. Lactic acidosis secondary to metformin, which has been discontinued and changed to Januvia 3. Chronic persistent Atrial fibrillation, controlled ventricular rate 4. Coumadin monitoring 5. Acute COPD exacerbation in a patient with history of nicotine abuse 6. Hyperlipidemia 7. CAD, history of CABG, stenting, ischemic cardiomyopathy with EF of 30-35%, permanent pacemaker 8. Hypertension 9. Hypothyroidism 10. Pulmonary hypertension 11. Hyperlipidemia 12. Acute mild metabolic encephalopathy, possibly hospital environment related with sleep deprivation. We'll hold off on Seroquel as patient is not agitated at this time. Plan: Continue on current medication regime ,monitoring and symptomatic treatment. PT OT and social work consulted for potential ECF rehab. Plan of care discussed with armen, the caregiver. Further recommendations to follow. The impression and plan of care has been dictated as directed. : I performed a H&P examination of this patient and discussed the same with the dictator. I agree with the dictator's note. Any additional findings/opinions/ etc. will be noted.
[2016-07-11] MEDS ORDERED: WARFARIN 3 MG TAB PO SCH (18:00)
[2016-07-11 21:06] LABS: Glucose,Whole Blood 195 mg/dL (75-99)
[2016-07-11] MEDS: ATORVASTATIN 10 MG TAB PO SCH (21:18)
[2016-07-11] MEDS ORDERED: QUEtiapine 50 MG TAB PO SCH (23:45)
[2016-07-12] MEDS: IPRATROPIUM-ALBUTEROL 3 ML NEB INHALATION SCH ×5 (00:29→15:58)
[2016-07-12 02:20] VITALS: TEMP 97
[2016-07-12 05:39] LABS: CH 37.9; CHCM 31.8; HCT 35.5 % (39.0-53.0); HDW 2.72; HGB 11.1 gm/dL (13.0-17.5); MCH 37.6 pg (25.0-35.0); MCHC 31.4 g/dL (31.0-37.0); Macrocytosis Marked; Mean Platelet Volume 8.1; RBC 2.96 m/uL (4.30-5.90); RDW 15.4 % (11.5-15.5); WBC 8.5 k/uL (3.8-10.6)
[2016-07-12 05:49] LABS: Anion Gap 7 mmol/L; Blood Urea Nitrogen 29 mg/dL (9-20); Calcium 8.7 mg/dL (8.4-10.2); Carbon Dioxide 32 mmol/L (22-30); Chloride 103 mmol/L (98-107); Glucose 137 mg/dL (74-99); Magnesium 1.7 mg/dL (1.6-2.3); Non-African American GFR(MDRD) >60 (>60 ml/min/1.73 sqM); Potassium 4.9 mmol/L (3.5-5.1); Sodium 142 mmol/L (137-145)
[2016-07-12 05:50] LABS: Glucose,Whole Blood 130 mg/dL (75-99)
[2016-07-12 05:54] LABS: INR 3.2 (<1.1)
[2016-07-12] MEDS: INSULIN LISPRO (humaLOG) 300 UNIT/3 ML VIAL SQ SCH ×3 (06:04→17:28)
[2016-07-12] MEDS: LEVOTHYROXINE 100 MCG TAB PO SCH (06:14)
--- NOTE | 2016-07-12 08:44 | XR ---
EXAMINATION TYPE: XR chest 2V DATE OF EXAM: 07/12/2016 8:36 AM COMPARISON: 07/09/2016 HISTORY: Shortness of breath TECHNIQUE: Frontal and lateral views of the chest are obtained. FINDINGS: Scattered senescent parenchymal changes noted. Hyperinflation compatible with COPD. Underlying inters titial lung disease. Persistent biapical pleural thickening and scarring. Suspect tiny effusions. Heart size is stable. Mediastinal structures are stable and grossly unremarkable. No evidence for hilar prominence. Degenerative changes dorsal spine. IMPRESSION: 1. No evidence for acute pulmonary disease. COPD with underlying interstitial lung disease and biapic al pleural thickening and scarring. Tiny effusions suspected.
[2016-07-12] MEDS: predniSONE 20 MG TAB PO SCH (09:20)
[2016-07-12] MEDS: ENOXAPARIN 40 MG/0.4 ML SYRINGE SQ SCH (09:20)
[2016-07-12] MEDS: ASPIRIN 325 MG TAB PO SCH (09:20)
[2016-07-12] MEDS: FUROSEMIDE 10 MG/ML 4 ML VIAL IV SCH (09:20)
[2016-07-12] MEDS: ISOSORBIDE MONONITRATE ER 30 MG TAB.ER.24H PO SCH (09:20)
[2016-07-12] MEDS: SOTALOL 80 MG TAB PO SCH (09:21)
[2016-07-12 11:27] LABS: Glucose,Whole Blood 119 mg/dL (75-99)
[2016-07-12 16:15] LABS: Glucose,Whole Blood 126 mg/dL (75-99)
[2016-07-12 17:04] VITALS: BP 125/69; PULSE 71; RESP 14
--- NOTE | 2016-07-12 17:18 | P.PN ---
Subjective Date of service 07/12/2016. Progress note being dictated for Dr. Ricks. Interval history: This is a 85-year-old gentleman admitted with acute hypoxic respiratory failure secondary to acute on chronic CHF exacerbation, acute COPD and multiple other medical issues. Patient had not been sleeping well since his admission, developed acute delirium. Seroquel added to med regime with ignificant improvement. Denies chest pain, palpitations or increasing shortness of breath. Coumadin held last night, INR 3.2. Objective - Vital Signs Vital signs: Vital Signs Temp 97 F L 07/12/16 08:00 Pulse 76 07/12/16 12:00 Resp 18 07/12/16 12:00 BP 128/65 07/12/16 12:00 Pulse Ox 94 L 07/12/16 12:00 Intake & Output 07/11/16 07/12/16 07/12/16 18:59 06:59 18:59 Intake Total 606 360 Output Total 725 650 150 Balance -119 -650 210 Weight 72.5 kg Intake: Oral 606 360 Output: Urine 725 650 150 Other: Voiding Method Toilet Urinal # Voids 1 1 1 # Bowel Movements 0 1 - Exam PHYSICAL EXAM: VITAL SIGNS: As above GENERAL: [Sitting up in bed, no acute distress] HEENT: [Pupils equal conjunctiva normal.] NECK: [Supple, no JVD] RESPIRATORY EFFORT:[Normal] LUNGS: [Diminished, no wheezing, no crackles] CARDIOVASCULAR[irregular, controlled ventricular rate] GI: [Abdomen soft, nontender, positive bowel sounds.] PSYCH: [Alert and oriented -2, mood and affect normal.] NEURO: No focal deficits - Labs CBC & Chem 7: 07/12/16 05:16 07/12/16 05:16 Labs: Abnormal Lab Results - Last 24 Hours (Table) 07/11/16 07/11/16 07/12/16 Range/Units 16:52 20:47 05:16 RBC (4.30-5.90) m/uL Hgb (13.0-17.5) gm/dL Hct (39.0-53.0) % MCV (80.0-100.0) fL MCH (25.0-35.0) pg Plt Count (150-450) k/uL PT (9.0-12.0) sec Carbon Dioxide 32 H (22-30) mmol/L BUN 29 H (9-20) mg/dL Glucose 137 H (74-99) mg/dL POC Glucose (mg/dL) 163 H 195 H (75-99) mg/dL 07/12/16 07/12/16 07/12/16 Range/Units 05:16 05:16 05:49 RBC 2.96 L (4.30-5.90) m/uL Hgb 11.1 L (13.0-17.5) gm/dL Hct 35.5 L (39.0-53.0) % MCV 120.0 H (80.0-100.0) fL MCH 37.6 H (25.0-35.0) pg Plt Count 119 L (150-450) k/uL PT 31.0 H (9.0-12.0) sec Carbon Dioxide (22-30) mmol/L BUN (9-20) mg/dL Glucose (74-99) mg/dL POC Glucose (mg/dL) 130 H (75-99) mg/dL 07/12/16 07/12/16 Range/Units 11:25 16:13 RBC (4.30-5.90) m/uL Hgb (13.0-17.5) gm/dL Hct (39.0-53.0) % MCV (80.0-100.0) fL MCH (25.0-35.0) pg Plt Count (150-450) k/uL PT (9.0-12.0) sec Carbon Dioxide (22-30) mmol/L BUN (9-20) mg/dL Glucose (74-99) mg/dL POC Glucose (mg/dL) 119 H 126 H (75-99) mg/dL Assessment and Plan Plan: 1. Acute hypoxic respiratory failure secondary to acute on chronic CHF exacerbation, systolic dysfunction, EF 30-35% 2. Lactic acidosis secondary to metformin, which has been discontinued and changed to Januvia 3. Chronic persistent Atrial fibrillation, controlled ventricular rate 4. Coumadin monitoring 5. Acute COPD exacerbation in a patient with history of nicotine abuse 6. Hyperlipidemia 7. CAD, history of CABG, stenting, ischemic cardiomyopathy with EF of 30-35%, permanent pacemaker 8. Hypertension 9. Hypothyroidism 10. Pulmonary hypertension 11. Hyperlipidemia 12. Acute mild metabolic encephalopathy, possibly hospital environment related with sleep deprivation. Plan: Continue on current medication regime ,monitoring and symptomatic treatment. Evaluated by PT, subacute rehab recommended. Plan of care further discussed with armen, the caregiver. Patient to be discharged to [facility] rehab, pre -CERT pending. Further recommendations to follow. The impression and plan of care has been dictated as directed. : I performed a H&P examination of this patient and discussed the same with the dictator. I agree with the dictator's note. Any additional findings/opinions/ etc. will be noted.
[2016-07-12] MEDS ORDERED: MAGNESIUM SULFATE-D5W PMX 1 GM in DEXTROSE/WATER 1 100ML.BAG IVPB ONE (18:00)
[2016-07-12] MEDS ORDERED: WARFARIN 2 MG TAB PO ONE (18:00)
[2016-07-13] MEDS ORDERED: LINAGLIPTIN 5 MG TABLET PO SCH (09:00)
== END 2016-07-12 18:05 | DRG 291 ==
LOC: EC 10:28 → 6SEL 12:55
PROVIDERS: ADMIT Hospitalist; ATTEND Hospitalist
DX: I50.23 Acute on chronic systolic (congestive) heart failure (principal); J96.01 Acute respiratory failure with hypoxia; I48.1 Persistent atrial fibrillation; E87.2 Acidosis; N17.9 Acute kidney failure, unspecified; J44.1 Chronic obstructive pulmonary disease with (acute) exacerbation; I27.2 Other secondary pulmonary hypertension; I48.2 Chronic atrial fibrillation; I10 Essential (primary) hypertension; G51.0 Bell's palsy; E11.9 Type 2 diabetes mellitus without complications; E03.9 Hypothyroidism, unspecified; E78.5 Hyperlipidemia, unspecified; I25.10 Atherosclerotic heart disease of native coronary artery without angina pectoris; I25.5 Ischemic cardiomyopathy; R79.1 Abnormal coagulation profile; T38.3X5A Adverse effect of insulin and oral hypoglycemic [antidiabetic] drugs, initial encounter; R74.8 Abnormal levels of other serum enzymes; M19.90 Unspecified osteoarthritis, unspecified site; H91.90 Unspecified hearing loss, unspecified ear; R41.0 Disorientation, unspecified; Z79.01 Long term (current) use of anticoagulants; Z79.84 Long term (current) use of oral hypoglycemic drugs; Z79.899 Other long term (current) drug therapy; Z79.82 Long term (current) use of aspirin; Z88.1 Allergy status to other antibiotic agents; Z88.0 Allergy status to penicillin; Z88.2 Allergy status to sulfonamides; Z87.891 Personal history of nicotine dependence; Z95.0 Presence of cardiac pacemaker; Z95.1 Presence of aortocoronary bypass graft; Z82.49 Family history of ischemic heart disease and other diseases of the circulatory system
CPT/HCPCS: 36415; 71020; 80048; 80053; 80061; 80162; 81001; 82550; 82553; 83605; 83735; 83880; 84100; 84484; 85025; 85027; 85610; 85730; 87086; 87502; 93005; 94640; 94760; 96360; 99285